=== PATIENT | male | born 1955 | race Caucasian/White ===

== ENCOUNTER 2017-12-14 14:59 | Inpatient (IN) ==
[2017-12-14] MEDS ORDERED: VANCOMYCIN INJ 1,000 MG in SODIUM CHLORIDE 0.9% 250 ML IV STA (15:36)
[2017-12-14] MEDS ORDERED: DIPH/TET/ACEL PERT BOOSTER VACCINE 0.5 ML VIAL IM ONE (15:36)
[2017-12-14] MEDS ORDERED: SODIUM CHLORIDE 0.9% 1,000 ML IV STA (15:36)
[2017-12-14 16:22] LABS: ABG Base Excess -1.4 MMOL/L (-2.5-2.5); ABG HCO3 23.3 MMOL/L (20-26); ABG Oxygen Saturation 98.4 % (95-100); ABG PH 7.525 (7.35-7.45); ABG TCO2 15.5 MMOL/L (23-27)
[2017-12-14] MEDS ORDERED: VANCOMYCIN 1,000 MG VIAL ONE (16:36)
[2017-12-14 16:42] LABS: Basophils # 0.1 10*3/uL (0.0-0.2); Basophils % 0.5 % (0.0-0.8); Hematocrit 44.1 VOL% (42.0-52.0); Hemoglobin 15.9 GM/DL (14.0-18.0); Immature Granulocytes % 1.2 %; Immature Granulocytes Absolute 0.25 #; Lymphocytes # 2.2 10*3/uL (1.4-4.0); Lymphocytes % 10.9 % (21.2-54.2); Mean Corpuscular HGB Conc 36.1 GM/DL (32-36); Mean Corpuscular Hemoglobin 33 PG (27-34); Mean Corpuscular Volume 92.1 FL (87-102); Mean Platelet Volume 13.4 FL (9.6-12.0); Monocytes # 0.5 10*3/uL (0.11-0.8); Monocytes % 2.3 % (1.7-12.7); Neutrophils # 17.2 10*3/uL (1.4-7.4); Neutrophils % 85.1 % (38.7-73.9); Platelet Count 135 T/CUMM (130-400); Red Blood Count 4.79 MC/CUMM (3.8-5.5); Red Cell Distribution Width 12.9 % (9.3-17.3); White Blood Count 20.2 T/CUMM (4-12)
[2017-12-14 16:43] LABS: Alanine Aminotransferase 51 U/L (16-61); Alkaline Phosphatase 55 U/L (45-117); Aspartate Amino Transferase 173 U/L (0-37); Blood Urea Nitrogen 61 MG/DL (7-18); Calcium 7.8 MG/DL (8.5-10.1); Glucose 118 MG/DL (74-106); Osmolality,Calculated 270.4 MOS/KG (273-304); Sodium 126 MMOL/L (136-145); Total Protein 7.4 G/DL (6.4-8.3)
[2017-12-14] MEDS ORDERED: THIAMINE INJ 100 MG, FOLIC ACID INJ 1 MG, MAGNESIUM SULF INJ 2 GM, MULTIVITAMIN INJ 10 ... IV ONE (16:50)
[2017-12-14 17:03] LABS: Band Neutrophils 39 % (0-10); Lymphocytes 10 % (20-55); Platelet Estimate Normal; Segmented Neutrophils 46 % (50-85)
[2017-12-14 17:04] LABS: Anisocytosis Slight; Burr Cells Few; Microcytosis Slight
[2017-12-14 17:07] LABS: Polychromasia Few; Tear Drop Cells Slight
[2017-12-14 17:08] LABS: Total Cells Counted 100
[2017-12-14] MEDS ORDERED: PIPERACILLIN/TAZOBACTAM 3,375 MG in SODIUM CHLORIDE 0.9% 100 ML IV STA (17:51)
[2017-12-14] MEDS ORDERED: SODIUM CHLORIDE 0.9% 1,000 ML IV ONE (18:02)
[2017-12-14] MEDS ORDERED: ONDANSETRON 4 MG/2 ML VIAL IV PRN (18:07)
[2017-12-14] MEDS ORDERED: diphenhydrAMINE CAP 25 MG CAPSULE PO PRN (18:07)
[2017-12-14] MEDS ORDERED: ACETAMINOPHEN 325 MG TABLET PO PRN (18:07)
[2017-12-14 18:28] LABS: Cholesterol 81 MG/DL (50-200); HDL Cholesterol < 10 MG/DL (40-60); Triglycerides 222 MG/DL (2-150); VLDL CHOLESTEROL 44.4 MG/DL
[2017-12-14 18:59] LABS: Apearance,Urine CLEAR (Clear); Bilirubin,Urine Negative (Negative); Blood, Urine Moderate mg/dL (Negative); Glucose,Urine (UA) Negative (Negative); Hyaline Casts,Urine 5 /LPF (0-3); Ketones,Urine Negative (Negative); Mucus,Urine Occasional /LPF (Occasional); Nitrite,Urine Negative (Negative); Protein,Urine Negative; RBC,Urine 1 /HPF (0-4); Squamous Epithelial Cell,Urine Occasional /HPF (0-10); Urine Color Amber (Yellow); Urine Specific Gravity 1.046 (1.001-1.035); WBC,Urine 1 /HPF (0-6)
[2017-12-14 19:07] LABS: Barbiturates Screen,Urine Negative (Negative); Benzodiazepines Screen,Urine Negative (Negative); Cannabinoid Screen,Urine Negative (Negative); Opiate Screen,Urine Negative (Negative); Phencyclidine Screen,Urine Negative (Negative)
[2017-12-14] MEDS: HEPARIN 5,000 UNIT/1 ML VIAL SUBCUT SCH (21:29)
[2017-12-14] MEDS: DOCUSATE SODIUM 100 MG CAPSULE PO SCH (21:36)
[2017-12-14] MEDS: THIAMINE INJ 100 MG, FOLIC ACID INJ 1 MG, MAGNESIUM SULF INJ 2 GM, MULTIVITAMIN INJ 10 ... IV SCH (23:56)
[2017-12-15 04:39] LABS: Basophils # 0.1 10*3/uL (0.0-0.2); Basophils % 0.6 % (0.0-0.8); Eosinophils % 0.1 % (0.00-10.9); Hematocrit 42.4 VOL% (42.0-52.0); Hemoglobin 14.9 GM/DL (14.0-18.0); Immature Granulocytes % 1.1 %; Immature Granulocytes Absolute 0.17 #; Lymphocytes # 1.7 10*3/uL (1.4-4.0); Lymphocytes % 11.5 % (21.2-54.2); Mean Corpuscular HGB Conc 35.1 GM/DL (32-36); Mean Corpuscular Hemoglobin 33 PG (27-34); Mean Corpuscular Volume 92.4 FL (87-102); Mean Platelet Volume 13.5 FL (9.6-12.0); Monocytes # 0.3 10*3/uL (0.11-0.8); Neutrophils # 12.6 10*3/uL (1.4-7.4); Neutrophils % 84.7 % (38.7-73.9); Platelet Count 119 T/CUMM (130-400); Red Blood Count 4.59 MC/CUMM (3.8-5.5); Red Cell Distribution Width 13.2 % (9.3-17.3); White Blood Count 14.8 T/CUMM (4-12)
[2017-12-15 05:14] LABS: Platelet Estimate Decreased; Polychromasia Few
[2017-12-15 05:17] LABS: Albumin 1.8 G/DL (3.4-5.0); Bilirubin,Total 2.8 MG/DL (0.2-1.0); Calcium 7.2 MG/DL (8.5-10.1); Osmolality,Calculated 277.5 MOS/KG (273-304); Potassium 3.1 MMOL/L (3.5-5.1); Total Protein 6.8 G/DL (6.4-8.3)
[2017-12-15] MEDS: chlordiazePOXIDE 25 MG CAPSULE PO SCH ×4 (06:22→18:04)
[2017-12-15] MEDS: MEROPENEM 1,000 MG in SODIUM CHLORIDE 0.9% 100 ML IV SCH ×3 (06:27→22:59)
[2017-12-15] MEDS: HEPARIN 5,000 UNIT/1 ML VIAL SUBCUT SCH ×3 (06:27→18:21)
[2017-12-15] MEDS: VANCOMYCIN INJ 1,000 MG in SODIUM CHLORIDE 0.9% 250 ML IV SCH ×2 (06:51→17:57)
[2017-12-15] MEDS: PIPERACILLIN/TAZOBACTAM 3,375 MG in SODIUM CHLORIDE 0.9% 100 ML IV SCH ×3 (08:41→23:06)
[2017-12-15] MEDS: MULTIVITAMIN (CENTRUM) TABLET PO SCH (08:44)
[2017-12-15] MEDS: FOLIC ACID 1 MG TABLET PO SCH (08:44)
[2017-12-15] MEDS: DOCUSATE SODIUM 100 MG CAPSULE PO SCH ×2 (08:44→20:49)
[2017-12-15] MEDS: SODIUM CHLORIDE 0.9% 1,000 ML IV SCH ×3 (10:28→23:06)
[2017-12-15] MEDS: THIAMINE INJ 100 MG, FOLIC ACID INJ 1 MG, MAGNESIUM SULF INJ 2 GM, MULTIVITAMIN INJ 10 ... IV SCH (20:49)
[2017-12-16] MEDS: chlordiazePOXIDE 25 MG CAPSULE PO SCH ×4 (00:05→18:33)
[2017-12-16] MEDS: SODIUM CHLORIDE 0.9% 1,000 ML IV SCH ×3 (02:31→18:14)
[2017-12-16] MEDS: HEPARIN 5,000 UNIT/1 ML VIAL SUBCUT SCH ×3 (02:49→18:15)
[2017-12-16 03:41] LABS: Basophils % 0.4 % (0.0-0.8); Eosinophils % 0.2 % (0.00-10.9); Hematocrit 39.1 VOL% (42.0-52.0); Hemoglobin 13.8 GM/DL (14.0-18.0); Immature Granulocytes % 1.5 %; Immature Granulocytes Absolute 0.15 #; Lymphocytes # 1.4 10*3/uL (1.4-4.0); Lymphocytes % 14.7 % (21.2-54.2); Mean Corpuscular HGB Conc 35.3 GM/DL (32-36); Mean Corpuscular Hemoglobin 33 PG (27-34); Mean Corpuscular Volume 94.4 FL (87-102); Monocytes # 0.2 10*3/uL (0.11-0.8); Monocytes % 1.7 % (1.7-12.7); Neutrophils % 81.5 % (38.7-73.9); Platelet Count 103 T/CUMM (130-400); Red Blood Count 4.14 MC/CUMM (3.8-5.5); Red Cell Distribution Width 13.4 % (9.3-17.3); White Blood Count 9.8 T/CUMM (4-12)
[2017-12-16 03:51] LABS: Albumin 1.4 G/DL (3.4-5.0); Bilirubin,Total 2.4 MG/DL (0.2-1.0); Calcium 6.9 MG/DL (8.5-10.1); Osmolality,Calculated 287.3 MOS/KG (273-304); Total Protein 6.1 G/DL (6.4-8.3)
[2017-12-16 04:13] LABS: Lymphocytes 10 % (20-55); Segmented Neutrophils 86 % (50-85); Total Cells Counted 100
[2017-12-16 04:14] LABS: Platelet Estimate Decreased
[2017-12-16] MEDS: MEROPENEM 1,000 MG in SODIUM CHLORIDE 0.9% 100 ML IV SCH (05:26)
[2017-12-16] MEDS: VANCOMYCIN INJ 1,000 MG in SODIUM CHLORIDE 0.9% 250 ML IV SCH ×2 (05:28→17:04)
[2017-12-16] MEDS: PIPERACILLIN/TAZOBACTAM 3,375 MG in SODIUM CHLORIDE 0.9% 100 ML IV SCH ×3 (08:44→23:24)
[2017-12-16] MEDS: MULTIVITAMIN (CENTRUM) TABLET PO SCH (10:27)
[2017-12-16] MEDS: FOLIC ACID 1 MG TABLET PO SCH (10:33)
[2017-12-16] MEDS: DOCUSATE SODIUM 100 MG CAPSULE PO SCH ×2 (10:33→21:59)
[2017-12-16] MEDS: POTASSIUM CHLORIDE RIDER 10 MEQ in PREMIX 1 EACH IV PRN ×5 (10:41→21:59)
[2017-12-16] MEDS ORDERED: METHYL SALICYLATE 60 ML BOTTLE TOP ONE (11:16)
[2017-12-16] MEDS ORDERED: BUPIVACAINE MPF 0.25% /EPI 30 ML VIAL ONE (11:48)
[2017-12-16] MEDS ORDERED: LIDOCAINE 1%/EPI INJ 20 ML VIAL ONE (11:48)
[2017-12-16] MEDS ORDERED: ONDANSETRON 4 MG/2 ML VIAL ONE (13:49)
[2017-12-16] MEDS ORDERED: ETOMIDATE 40 MG/20 ML VIAL IV ONE (13:49)
[2017-12-16] MEDS ORDERED: fentaNYL 100 MCG/2 ML VIAL ONE (13:49)
[2017-12-16] MEDS ORDERED: PHENYLEPHRINE 1 MG/10 ML SYRINGE IV ONE (13:49)
[2017-12-16] MEDS ORDERED: PROPOFOL 200 MG/20 ML VIAL IV ONE (13:49)
[2017-12-16] MEDS: MUPIROCIN 2% OINT 22 GM TUBE TOP SCH ×2 (16:52→21:59)
[2017-12-17] MEDS: HEPARIN 5,000 UNIT/1 ML VIAL SUBCUT SCH ×3 (03:47→18:02)
[2017-12-17] MEDS: chlordiazePOXIDE 25 MG CAPSULE PO SCH ×3 (03:47→21:13)
[2017-12-17] MEDS: POTASSIUM CHLORIDE RIDER 10 MEQ in PREMIX 1 EACH IV PRN ×2 (05:24→06:41)
[2017-12-17 06:06] LABS: Basophils % 0.3 % (0.0-0.8); Eosinophils % 0.2 % (0.00-10.9); Hematocrit 40.2 VOL% (42.0-52.0); Hemoglobin 13.6 GM/DL (14.0-18.0); Immature Granulocytes % 2.1 %; Immature Granulocytes Absolute 0.27 #; Lymphocytes # 1.4 10*3/uL (1.4-4.0); Lymphocytes % 10.6 % (21.2-54.2); Mean Corpuscular HGB Conc 33.8 GM/DL (32-36); Mean Corpuscular Hemoglobin 33 PG (27-34); Mean Corpuscular Volume 97.1 FL (87-102); Mean Platelet Volume 12.7 FL (9.6-12.0); Monocytes # 0.3 10*3/uL (0.11-0.8); Monocytes % 2.1 % (1.7-12.7); Neutrophils # 11.1 10*3/uL (1.4-7.4); Neutrophils % 84.7 % (38.7-73.9); Platelet Count 119 T/CUMM (130-400); Red Blood Count 4.14 MC/CUMM (3.8-5.5); Red Cell Distribution Width 14.1 % (9.3-17.3); White Blood Count 13.1 T/CUMM (4-12)
[2017-12-17 06:26] LABS: Band Neutrophils 8 % (0-10); Lymphocytes 12 % (20-55); Platelet Estimate Decreased; Segmented Neutrophils 77 % (50-85); Total Cells Counted 100
[2017-12-17 06:27] LABS: Hypochromasia 1+
[2017-12-17 06:30] LABS: Albumin 1.3 G/DL (3.4-5.0); Bilirubin,Total 2.1 MG/DL (0.2-1.0); Osmolality,Calculated 284.1 MOS/KG (273-304); Potassium 3.8 MMOL/L (3.5-5.1); Total Protein 6.1 G/DL (6.4-8.3)
[2017-12-17] MEDS: VANCOMYCIN INJ 1,000 MG in SODIUM CHLORIDE 0.9% 250 ML IV SCH ×2 (07:13→17:22)
[2017-12-17] MEDS: PIPERACILLIN/TAZOBACTAM 3,375 MG in SODIUM CHLORIDE 0.9% 100 ML IV SCH ×3 (08:54→23:13)
[2017-12-17] MEDS: MULTIVITAMIN (CENTRUM) TABLET PO SCH (08:56)
[2017-12-17] MEDS: DOCUSATE SODIUM 100 MG CAPSULE PO SCH ×2 (08:57→21:13)
[2017-12-17] MEDS: FOLIC ACID 1 MG TABLET PO SCH (08:57)
[2017-12-17] MEDS: MUPIROCIN 2% OINT 22 GM TUBE TOP SCH ×2 (11:32→21:13)
[2017-12-17] MEDS ORDERED: PROPOFOL 200 MG/20 ML VIAL IV ONE (13:55)
[2017-12-17] MEDS ORDERED: ONDANSETRON 4 MG/2 ML VIAL ONE (13:56)
[2017-12-17] MEDS ORDERED: SEVOFLURANE 1 UNIT/15 MINUTE INH ONE (13:56)
[2017-12-17] MEDS ORDERED: PHENYLEPHRINE 1 MG/10 ML SYRINGE IV ONE (13:56)
[2017-12-18] MEDS: HEPARIN 5,000 UNIT/1 ML VIAL SUBCUT SCH ×3 (03:38→17:48)
[2017-12-18 05:45] LABS: Basophils % 0.1 % (0.0-0.8); Eosinophils % 0.5 % (0.00-10.9); Hematocrit 37.3 VOL% (42.0-52.0); Immature Granulocytes % 1.7 %; Immature Granulocytes Absolute 0.14 #; Lymphocytes # 1.2 10*3/uL (1.4-4.0); Lymphocytes % 14.8 % (21.2-54.2); Mean Corpuscular HGB Conc 32.2 GM/DL (32-36); Mean Corpuscular Hemoglobin 33 PG (27-34); Mean Corpuscular Volume 101.1 FL (87-102); Monocytes # 0.3 10*3/uL (0.11-0.8); Monocytes % 3.3 % (1.7-12.7); Neutrophils # 6.5 10*3/uL (1.4-7.4); Neutrophils % 79.6 % (38.7-73.9); Platelet Count 112 T/CUMM (130-400); Red Blood Count 3.69 MC/CUMM (3.8-5.5); Red Cell Distribution Width 14.8 % (9.3-17.3); White Blood Count 8.2 T/CUMM (4-12)
[2017-12-18 06:13] LABS: Band Neutrophils 2 % (0-10); Hypochromasia 1+; Lymphocytes 14 % (20-55); Platelet Estimate Decreased; Segmented Neutrophils 77 % (50-85); Total Cells Counted 100
[2017-12-18 06:19] LABS: Calcium 6.9 MG/DL (8.5-10.1); Potassium 4.3 MMOL/L (3.5-5.1)
[2017-12-18] MEDS: VANCOMYCIN INJ 1,000 MG in SODIUM CHLORIDE 0.9% 250 ML IV SCH ×2 (06:30→18:28)
[2017-12-18] MEDS: PIPERACILLIN/TAZOBACTAM 3,375 MG in SODIUM CHLORIDE 0.9% 100 ML IV SCH (08:11)
[2017-12-18] MEDS: DOCUSATE SODIUM 100 MG CAPSULE PO SCH ×2 (08:12→21:00)
[2017-12-18] MEDS: chlordiazePOXIDE 25 MG CAPSULE PO SCH ×2 (08:12→21:00)
[2017-12-18] MEDS: MULTIVITAMIN (CENTRUM) TABLET PO SCH (08:12)
[2017-12-18] MEDS: MUPIROCIN 2% OINT 22 GM TUBE TOP SCH ×2 (08:20→21:03)
[2017-12-18] MEDS: FOLIC ACID 1 MG TABLET PO SCH (08:34)
[2017-12-18] MEDS: MORPHINE 4 MG/1 ML VIAL IV PRN (09:34)
[2017-12-18] MEDS: SODIUM HYPOCHLORITE 0.25% IRRIG 473 ML BOTTLE TOP SCH (10:00)
[2017-12-18] MEDS: ALBUTEROL 2.5 MG/3 ML NEB RESP TX SCH ×2 (14:28→19:28)
[2017-12-18] MEDS: AMPICILLIN/SULBACTAM 3,000 MG in SODIUM CHLORIDE 0.9% 100 ML IV SCH ×2 (15:02→21:02)
[2017-12-19] MEDS: ALBUTEROL 2.5 MG/3 ML NEB RESP TX SCH ×4 (02:03→19:51)
[2017-12-19] MEDS: AMPICILLIN/SULBACTAM 3,000 MG in SODIUM CHLORIDE 0.9% 100 ML IV SCH ×3 (03:21→14:14)
[2017-12-19] MEDS: HEPARIN 5,000 UNIT/1 ML VIAL SUBCUT SCH ×3 (05:20→20:36)
[2017-12-19] MEDS: VANCOMYCIN INJ 1,000 MG in SODIUM CHLORIDE 0.9% 250 ML IV SCH (06:43)
[2017-12-19 08:24] LABS: Basophils % 0.4 % (0.0-0.8); Eosinophils % 0.6 % (0.00-10.9); Hematocrit 37.3 VOL% (42.0-52.0); Hemoglobin 12.1 GM/DL (14.0-18.0); Immature Granulocytes % 0.9 %; Immature Granulocytes Absolute 0.06 #; Lymphocytes # 1.4 10*3/uL (1.4-4.0); Lymphocytes % 19.9 % (21.2-54.2); Mean Corpuscular HGB Conc 32.4 GM/DL (32-36); Mean Corpuscular Hemoglobin 33 PG (27-34); Mean Corpuscular Volume 101.4 FL (87-102); Mean Platelet Volume 12.5 FL (9.6-12.0); Monocytes # 0.3 10*3/uL (0.11-0.8); Neutrophils # 5.1 10*3/uL (1.4-7.4); Neutrophils % 74.2 % (38.7-73.9); Platelet Count 140 T/CUMM (130-400); Red Blood Count 3.68 MC/CUMM (3.8-5.5); Red Cell Distribution Width 14.9 % (9.3-17.3); White Blood Count 6.8 T/CUMM (4-12)
[2017-12-19 08:56] LABS: Calcium 7.1 MG/DL (8.5-10.1); Osmolality,Calculated 285.8 MOS/KG (273-304)
[2017-12-19] MEDS: MULTIVITAMIN (CENTRUM) TABLET PO SCH (09:10)
[2017-12-19] MEDS: MUPIROCIN 2% OINT 22 GM TUBE TOP SCH ×2 (09:10→20:35)
[2017-12-19] MEDS: DOCUSATE SODIUM 100 MG CAPSULE PO SCH ×2 (09:11→20:35)
[2017-12-19] MEDS: FOLIC ACID 1 MG TABLET PO SCH (09:11)
[2017-12-19] MEDS: chlordiazePOXIDE 25 MG CAPSULE PO SCH ×2 (09:17→20:36)
[2017-12-19] MEDS: MORPHINE 4 MG/1 ML VIAL IV PRN (10:05)
[2017-12-19] MEDS: SODIUM HYPOCHLORITE 0.25% IRRIG 473 ML BOTTLE TOP SCH (10:05)
[2017-12-19] MEDS ORDERED: MIDAZOLAM 2 MG/2 ML VIAL ONE (15:00)
[2017-12-19] MEDS ORDERED: SEVOFLURANE 1 UNIT/15 MINUTE INH ONE (15:00)
[2017-12-19] MEDS ORDERED: DEXAMETHASONE 10 MG/1 ML VIAL ONE (15:00)
[2017-12-19] MEDS ORDERED: ePHEDrine 50 MG/ML AMP ONE (15:00)
[2017-12-19] MEDS ORDERED: PROPOFOL 200 MG/20 ML VIAL IV ONE (15:00)
[2017-12-19] MEDS ORDERED: PHENYLEPHRINE 1 MG/10 ML SYRINGE IV ONE (15:01)
[2017-12-19] MEDS ORDERED: ETOMIDATE 40 MG/20 ML VIAL IV ONE (15:01)
[2017-12-19] MEDS ORDERED: ONDANSETRON 4 MG/2 ML VIAL ONE (15:01)
[2017-12-19] MEDS ORDERED: KETOROLAC 30 MG/1 ML VIAL ONE (15:01)
[2017-12-19] MEDS: SODIUM CHLORIDE 0.9% 1,000 ML IV SCH ×2 (16:57→16:58)
[2017-12-19] MEDS: CLINDAMYCIN INJ 600 MG in PREMIX 1 EACH IV SCH (17:37)
[2017-12-19] MEDS: PENICILLIN G POTASSIUM INJ 2,000,000 UNIT in SODIUM CHLORIDE 0.9% 100 ML IV SCH ×2 (18:34→22:19)
[2017-12-20] MEDS: ALBUTEROL 2.5 MG/3 ML NEB RESP TX SCH ×4 (00:08→19:41)
[2017-12-20] MEDS: CLINDAMYCIN INJ 600 MG in PREMIX 1 EACH IV SCH ×3 (02:15→16:50)
[2017-12-20] MEDS: PENICILLIN G POTASSIUM INJ 2,000,000 UNIT in SODIUM CHLORIDE 0.9% 100 ML IV SCH ×5 (05:19→21:53)
[2017-12-20] MEDS: HEPARIN 5,000 UNIT/1 ML VIAL SUBCUT SCH ×3 (06:29→22:09)
[2017-12-20 06:55] LABS: Basophils % 0.2 % (0.0-0.8); Hematocrit 34.5 VOL% (42.0-52.0); Hemoglobin 11.3 GM/DL (14.0-18.0); Immature Granulocytes % 0.7 %; Immature Granulocytes Absolute 0.04 #; Mean Corpuscular HGB Conc 32.8 GM/DL (32-36); Mean Corpuscular Hemoglobin 33 PG (27-34); Mean Corpuscular Volume 102.1 FL (87-102); Monocytes # 0.2 10*3/uL (0.11-0.8); Monocytes % 3.6 % (1.7-12.7); Neutrophils # 4.5 10*3/uL (1.4-7.4); Neutrophils % 77.5 % (38.7-73.9); Platelet Count 135 T/CUMM (130-400); Red Blood Count 3.38 MC/CUMM (3.8-5.5); White Blood Count 5.8 T/CUMM (4-12)
[2017-12-20 07:20] LABS: Calcium 7.7 MG/DL (8.5-10.1); Osmolality,Calculated 281.3 MOS/KG (273-304); Potassium 4.6 MMOL/L (3.5-5.1)
[2017-12-20] MEDS: MUPIROCIN 2% OINT 22 GM TUBE TOP SCH ×2 (11:53→22:10)
[2017-12-20] MEDS: MULTIVITAMIN (CENTRUM) TABLET PO SCH (11:53)
[2017-12-20] MEDS: DOCUSATE SODIUM 100 MG CAPSULE PO SCH ×2 (11:56→21:50)
[2017-12-20] MEDS: FOLIC ACID 1 MG TABLET PO SCH (11:56)
[2017-12-20] MEDS: chlordiazePOXIDE 25 MG CAPSULE PO SCH (11:56)
[2017-12-20] MEDS: SODIUM HYPOCHLORITE 0.25% IRRIG 473 ML BOTTLE TOP SCH (11:57)
[2017-12-20] MEDS: LACTOBACILLUS ACIDOPHILUS/BULGARICUS CAPLET PO SCH (22:10)
[2017-12-20] MEDS: chlordiazePOXIDE 10 MG CAPSULE PO SCH (22:11)
[2017-12-21] MEDS: ALBUTEROL 2.5 MG/3 ML NEB RESP TX SCH ×3 (00:28→15:36)
[2017-12-21] MEDS: CLINDAMYCIN INJ 600 MG in PREMIX 1 EACH IV SCH ×3 (01:57→16:49)
[2017-12-21] MEDS: PENICILLIN G POTASSIUM INJ 2,000,000 UNIT in SODIUM CHLORIDE 0.9% 100 ML IV SCH ×6 (03:23→21:40)
[2017-12-21] MEDS: HEPARIN 5,000 UNIT/1 ML VIAL SUBCUT SCH ×2 (04:39→14:12)
[2017-12-21 05:47] LABS: Basophils % 0.2 % (0.0-0.8); Eosinophils % 0.6 % (0.00-10.9); Hematocrit 34.9 VOL% (42.0-52.0); Hemoglobin 11.3 GM/DL (14.0-18.0); Immature Granulocytes % 0.6 %; Immature Granulocytes Absolute 0.04 #; Lymphocytes # 1.6 10*3/uL (1.4-4.0); Lymphocytes % 24.2 % (21.2-54.2); Mean Corpuscular HGB Conc 32.4 GM/DL (32-36); Mean Corpuscular Hemoglobin 33 PG (27-34); Mean Corpuscular Volume 101.7 FL (87-102); Monocytes # 0.4 10*3/uL (0.11-0.8); Monocytes % 5.7 % (1.7-12.7); Neutrophils # 4.5 10*3/uL (1.4-7.4); Neutrophils % 68.7 % (38.7-73.9); Platelet Count 152 T/CUMM (130-400); Red Blood Count 3.43 MC/CUMM (3.8-5.5); Red Cell Distribution Width 14.7 % (9.3-17.3); White Blood Count 6.5 T/CUMM (4-12)
[2017-12-21 06:07] LABS: Albumin 1.6 G/DL (3.4-5.0); Bilirubin,Total 1.1 MG/DL (0.2-1.0); Calcium 7.4 MG/DL (8.5-10.1); Osmolality,Calculated 282.1 MOS/KG (273-304); Potassium 4.1 MMOL/L (3.5-5.1); Total Protein 6.5 G/DL (6.4-8.3)
[2017-12-21 06:31] LABS: Folate 6.5 NG/ML (5.4-24.0)
[2017-12-21] MEDS ORDERED: MAGNESIUM SULF RIDER 2 GM in PREMIX 1 EACH IV ONE (08:42)
[2017-12-21] MEDS: LACTOBACILLUS ACIDOPHILUS/BULGARICUS CAPLET PO SCH ×2 (10:48→11:06)
[2017-12-21] MEDS: MULTIVITAMIN (CENTRUM) TABLET PO SCH ×2 (10:48→11:07)
[2017-12-21] MEDS: chlordiazePOXIDE 10 MG CAPSULE PO SCH ×2 (10:48→11:09)
[2017-12-21] MEDS: DOCUSATE SODIUM 100 MG CAPSULE PO SCH ×2 (10:49→11:08)
[2017-12-21] MEDS: FOLIC ACID 1 MG TABLET PO SCH ×2 (10:49→11:08)
[2017-12-21] MEDS: MUPIROCIN 2% OINT 22 GM TUBE TOP SCH (10:50)
[2017-12-21] MEDS: SODIUM HYPOCHLORITE 0.25% IRRIG 473 ML BOTTLE TOP SCH (10:50)
[2017-12-21] MEDS ORDERED: FUROSEMIDE 40 MG/4 ML VIAL IV ONE (13:28)
[2017-12-21] MEDS: ALBUTEROL/IPRATROPIUM 3 ML NEB RESP TX SCH ×2 (13:40→19:50)
[2017-12-21] MEDS: DORNASE ALFA 2.5 MG/2.5 ML VIAL RESP TX SCH ×2 (13:45→19:50)
[2017-12-21] MEDS ORDERED: ALBUTEROL 2.5 MG/3 ML NEB RESP TX PRN (14:32)
[2017-12-21] MEDS ORDERED: MORPHINE 4 MG/1 ML VIAL IV PRN (14:36)
[2017-12-22] MEDS: ALBUTEROL/IPRATROPIUM 3 ML NEB RESP TX SCH ×4 (00:01→19:03)
[2017-12-22] MEDS: FOLIC ACID 1 MG TABLET PO SCH ×3 (01:24→21:51)
[2017-12-22] MEDS: LACTOBACILLUS ACIDOPHILUS/BULGARICUS CAPLET PO SCH ×3 (01:24→21:51)
[2017-12-22] MEDS: HEPARIN 5,000 UNIT/1 ML VIAL SUBCUT SCH ×4 (01:24→21:50)
[2017-12-22] MEDS: MUPIROCIN 2% OINT 22 GM TUBE TOP SCH ×3 (01:24→21:52)
[2017-12-22] MEDS: DOCUSATE SODIUM 100 MG CAPSULE PO SCH ×3 (01:24→21:51)
[2017-12-22] MEDS: PENICILLIN G POTASSIUM INJ 2,000,000 UNIT in SODIUM CHLORIDE 0.9% 100 ML IV SCH ×6 (01:40→22:12)
[2017-12-22] MEDS: CLINDAMYCIN INJ 600 MG in PREMIX 1 EACH IV SCH ×3 (02:30→17:08)
[2017-12-22] MEDS: DORNASE ALFA 2.5 MG/2.5 ML VIAL RESP TX SCH ×2 (07:05→19:03)
[2017-12-22] MEDS: MULTIVITAMIN (CENTRUM) TABLET PO SCH (09:46)
[2017-12-22] MEDS: SODIUM HYPOCHLORITE 0.25% IRRIG 473 ML BOTTLE TOP SCH (12:00)
[2017-12-22] MEDS ORDERED: FUROSEMIDE 40 MG/4 ML VIAL IV ONE (12:03)
[2017-12-23] MEDS: ALBUTEROL/IPRATROPIUM 3 ML NEB RESP TX SCH ×4 (00:16→18:57)
[2017-12-23] MEDS: CLINDAMYCIN INJ 600 MG in PREMIX 1 EACH IV SCH ×3 (00:54→16:00)
[2017-12-23] MEDS: PENICILLIN G POTASSIUM INJ 2,000,000 UNIT in SODIUM CHLORIDE 0.9% 100 ML IV SCH ×6 (01:20→20:54)
[2017-12-23] MEDS: HEPARIN 5,000 UNIT/1 ML VIAL SUBCUT SCH ×3 (05:10→20:47)
[2017-12-23] MEDS: DORNASE ALFA 2.5 MG/2.5 ML VIAL RESP TX SCH ×2 (07:20→19:02)
[2017-12-23] MEDS: LACTOBACILLUS ACIDOPHILUS/BULGARICUS CAPLET PO SCH ×2 (08:46→20:47)
[2017-12-23] MEDS: MULTIVITAMIN (CENTRUM) TABLET PO SCH (08:46)
[2017-12-23] MEDS: FOLIC ACID 1 MG TABLET PO SCH ×2 (08:47→20:47)
[2017-12-23] MEDS: SODIUM HYPOCHLORITE 0.25% IRRIG 473 ML BOTTLE TOP SCH (08:47)
[2017-12-23] MEDS: MUPIROCIN 2% OINT 22 GM TUBE TOP SCH ×2 (08:51→20:56)
[2017-12-23] MEDS: DOCUSATE SODIUM 100 MG CAPSULE PO SCH ×2 (08:51→20:47)
[2017-12-24] MEDS: CLINDAMYCIN INJ 600 MG in PREMIX 1 EACH IV SCH ×3 (00:24→16:50)
[2017-12-24] MEDS: ALBUTEROL/IPRATROPIUM 3 ML NEB RESP TX SCH ×4 (00:37→20:10)
[2017-12-24] MEDS: PENICILLIN G POTASSIUM INJ 2,000,000 UNIT in SODIUM CHLORIDE 0.9% 100 ML IV SCH ×6 (00:57→21:33)
[2017-12-24] MEDS: HEPARIN 5,000 UNIT/1 ML VIAL SUBCUT SCH ×3 (05:09→21:20)
[2017-12-24 05:45] LABS: Basophils % 0.6 % (0.0-0.8); Eosinophils % 0.3 % (0.00-10.9); Hematocrit 35.5 VOL% (42.0-52.0); Hemoglobin 11.6 GM/DL (14.0-18.0); Immature Granulocytes Absolute 0.14 #; Lymphocytes # 2.2 10*3/uL (1.4-4.0); Lymphocytes % 30.5 % (21.2-54.2); Mean Corpuscular HGB Conc 32.7 GM/DL (32-36); Mean Corpuscular Hemoglobin 33 PG (27-34); Mean Corpuscular Volume 99.7 FL (87-102); Mean Platelet Volume 12.2 FL (9.6-12.0); Monocytes # 0.4 10*3/uL (0.11-0.8); Monocytes % 5.3 % (1.7-12.7); Neutrophils # 4.4 10*3/uL (1.4-7.4); Neutrophils % 61.3 % (38.7-73.9); Platelet Count 171 T/CUMM (130-400); Red Blood Count 3.56 MC/CUMM (3.8-5.5); Red Cell Distribution Width 14.1 % (9.3-17.3); White Blood Count 7.1 T/CUMM (4-12)
[2017-12-24 06:17] LABS: Osmolality,Calculated 272.8 MOS/KG (273-304); Potassium 3.8 MMOL/L (3.5-5.1)
[2017-12-24] MEDS: DORNASE ALFA 2.5 MG/2.5 ML VIAL RESP TX SCH ×2 (06:55→20:10)
[2017-12-24] MEDS: LACTOBACILLUS ACIDOPHILUS/BULGARICUS CAPLET PO SCH ×2 (09:11→21:21)
[2017-12-24] MEDS: MULTIVITAMIN (CENTRUM) TABLET PO SCH (09:11)
[2017-12-24] MEDS: FOLIC ACID 1 MG TABLET PO SCH ×2 (09:11→21:21)
[2017-12-24] MEDS: DOCUSATE SODIUM 100 MG CAPSULE PO SCH ×2 (09:11→21:21)
[2017-12-24] MEDS: MUPIROCIN 2% OINT 22 GM TUBE TOP SCH ×2 (11:30→21:21)
[2017-12-24] MEDS: SODIUM HYPOCHLORITE 0.25% IRRIG 473 ML BOTTLE TOP SCH (11:30)
[2017-12-25] MEDS: ALBUTEROL/IPRATROPIUM 3 ML NEB RESP TX SCH ×4 (01:00→19:46)
[2017-12-25] MEDS: CLINDAMYCIN INJ 600 MG in PREMIX 1 EACH IV SCH ×3 (01:31→17:27)
[2017-12-25] MEDS: PENICILLIN G POTASSIUM INJ 2,000,000 UNIT in SODIUM CHLORIDE 0.9% 100 ML IV SCH ×6 (03:27→21:08)
[2017-12-25] MEDS: HEPARIN 5,000 UNIT/1 ML VIAL SUBCUT SCH ×3 (05:12→21:09)
[2017-12-25] MEDS: DORNASE ALFA 2.5 MG/2.5 ML VIAL RESP TX SCH ×2 (07:39→19:46)
[2017-12-25] MEDS: LACTOBACILLUS ACIDOPHILUS/BULGARICUS CAPLET PO SCH ×2 (09:19→21:09)
[2017-12-25] MEDS: MULTIVITAMIN (CENTRUM) TABLET PO SCH (09:19)
[2017-12-25] MEDS: DOCUSATE SODIUM 100 MG CAPSULE PO SCH ×2 (09:19→21:09)
[2017-12-25] MEDS: FOLIC ACID 1 MG TABLET PO SCH ×2 (09:19→21:09)
[2017-12-25] MEDS: MUPIROCIN 2% OINT 22 GM TUBE TOP SCH ×2 (09:20→21:10)
[2017-12-25] MEDS: SODIUM HYPOCHLORITE 0.25% IRRIG 473 ML BOTTLE TOP SCH (09:20)
[2017-12-26] MEDS: ALBUTEROL/IPRATROPIUM 3 ML NEB RESP TX SCH ×4 (01:14→19:06)
[2017-12-26] MEDS: PENICILLIN G POTASSIUM INJ 2,000,000 UNIT in SODIUM CHLORIDE 0.9% 100 ML IV SCH ×6 (01:18→23:20)
[2017-12-26] MEDS: CLINDAMYCIN INJ 600 MG in PREMIX 1 EACH IV SCH ×3 (02:05→17:18)
[2017-12-26] MEDS: HEPARIN 5,000 UNIT/1 ML VIAL SUBCUT SCH ×3 (05:49→21:10)
[2017-12-26 06:20] LABS: Calcium 8.3 MG/DL (8.5-10.1); Osmolality,Calculated 269.1 MOS/KG (273-304)
[2017-12-26] MEDS: DORNASE ALFA 2.5 MG/2.5 ML VIAL RESP TX SCH ×2 (07:37→19:06)
[2017-12-26] MEDS: LACTOBACILLUS ACIDOPHILUS/BULGARICUS CAPLET PO SCH ×2 (09:33→21:08)
[2017-12-26] MEDS: MUPIROCIN 2% OINT 22 GM TUBE TOP SCH ×2 (09:34→21:10)
[2017-12-26] MEDS: SODIUM HYPOCHLORITE 0.25% IRRIG 473 ML BOTTLE TOP SCH (09:34)
[2017-12-26] MEDS: DOCUSATE SODIUM 100 MG CAPSULE PO SCH ×2 (09:34→21:08)
[2017-12-26] MEDS: MULTIVITAMIN (CENTRUM) TABLET PO SCH (09:34)
[2017-12-26] MEDS: FOLIC ACID 1 MG TABLET PO SCH ×2 (09:34→21:08)
[2017-12-27] MEDS: ALBUTEROL/IPRATROPIUM 3 ML NEB RESP TX SCH ×4 (01:05→19:39)
[2017-12-27] MEDS: CLINDAMYCIN INJ 600 MG in PREMIX 1 EACH IV SCH ×3 (01:48→17:27)
[2017-12-27] MEDS: PENICILLIN G POTASSIUM INJ 2,000,000 UNIT in SODIUM CHLORIDE 0.9% 100 ML IV SCH ×6 (03:09→23:10)
[2017-12-27] MEDS: HEPARIN 5,000 UNIT/1 ML VIAL SUBCUT SCH ×3 (05:40→21:02)
[2017-12-27] MEDS: DORNASE ALFA 2.5 MG/2.5 ML VIAL RESP TX SCH ×2 (07:09→19:39)
[2017-12-27] MEDS: LACTOBACILLUS ACIDOPHILUS/BULGARICUS CAPLET PO SCH ×2 (09:10→21:01)
[2017-12-27] MEDS: MULTIVITAMIN (CENTRUM) TABLET PO SCH (09:10)
[2017-12-27] MEDS: MUPIROCIN 2% OINT 22 GM TUBE TOP SCH ×2 (09:10→22:58)
[2017-12-27] MEDS: DOCUSATE SODIUM 100 MG CAPSULE PO SCH ×2 (09:10→21:02)
[2017-12-27] MEDS: FOLIC ACID 1 MG TABLET PO SCH ×2 (09:11→21:02)
[2017-12-27] MEDS: SODIUM HYPOCHLORITE 0.25% IRRIG 473 ML BOTTLE TOP SCH (18:20)
[2017-12-28] MEDS: CLINDAMYCIN INJ 600 MG in PREMIX 1 EACH IV SCH ×2 (01:22→09:21)
[2017-12-28] MEDS: ALBUTEROL/IPRATROPIUM 3 ML NEB RESP TX SCH ×2 (01:46→07:35)
[2017-12-28] MEDS: PENICILLIN G POTASSIUM INJ 2,000,000 UNIT in SODIUM CHLORIDE 0.9% 100 ML IV SCH ×3 (03:20→11:00)
[2017-12-28] MEDS: HEPARIN 5,000 UNIT/1 ML VIAL SUBCUT SCH (05:19)
[2017-12-28 05:34] LABS: Basophils # 0.1 10*3/uL (0.0-0.2); Basophils % 0.9 % (0.0-0.8); Eosinophils # 0.1 10*3/uL (0.0-0.87); Eosinophils % 0.8 % (0.00-10.9); Hemoglobin 13.5 GM/DL (14.0-18.0); Immature Granulocytes % 1.9 %; Immature Granulocytes Absolute 0.15 #; Lymphocytes # 2.4 10*3/uL (1.4-4.0); Lymphocytes % 30.8 % (21.2-54.2); Mean Corpuscular HGB Conc 32.9 GM/DL (32-36); Mean Corpuscular Hemoglobin 33 PG (27-34); Mean Corpuscular Volume 99.3 FL (87-102); Mean Platelet Volume 12.6 FL (9.6-12.0); Monocytes # 0.7 10*3/uL (0.11-0.8); Monocytes % 8.8 % (1.7-12.7); NRBC # 0.06 10*3/uL; Neutrophils # 4.5 10*3/uL (1.4-7.4); Neutrophils % 56.8 % (38.7-73.9); Platelet Count 135 T/CUMM (130-400); Red Blood Count 4.13 MC/CUMM (3.8-5.5); Red Cell Distribution Width 14.6 % (9.3-17.3); White Blood Count 7.9 T/CUMM (4-12)
[2017-12-28 06:21] LABS: Hypochromasia 1+; Platelet Estimate Normal
[2017-12-28] MEDS: DORNASE ALFA 2.5 MG/2.5 ML VIAL RESP TX SCH (07:45)
[2017-12-28 08:53] VITALS: BP 115/74
[2017-12-28] MEDS: LACTOBACILLUS ACIDOPHILUS/BULGARICUS CAPLET PO SCH (09:25)
[2017-12-28] MEDS: MULTIVITAMIN (CENTRUM) TABLET PO SCH (09:25)
[2017-12-28] MEDS: DOCUSATE SODIUM 100 MG CAPSULE PO SCH (09:25)
[2017-12-28] MEDS: FOLIC ACID 1 MG TABLET PO SCH (09:26)
[2017-12-28] MEDS: SODIUM HYPOCHLORITE 0.25% IRRIG 473 ML BOTTLE TOP SCH (10:45)
[2017-12-28] MEDS: MUPIROCIN 2% OINT 22 GM TUBE TOP SCH (11:25)
== END 2017-12-28 12:00 | disposition home health service (06) | DRG 853 ==
LOC: N.ED 14:59 → N.EDINP 18:06 → SUATTDRO 18:06 → N.3E 18:26
PROVIDERS: ATTEND Internal Medicine

== ENCOUNTER 2020-03-03 18:04 | Inpatient (IN) ==
[2020-03-03] MEDS ORDERED: SODIUM CHLORIDE 0.9% 1,000 ML IV STA (19:29)
[2020-03-03 20:01] LABS: Basophils # 0.1 10*3/uL (0.0-0.2); Basophils % 0.6 % (0.0-0.8); Eosinophils % 0.1 % (0.00-10.9); Hematocrit 59.4 VOL% (42.0-52.0); Hemoglobin 19.4 GM/DL (14.0-18.0); Immature Granulocytes % 1.7 %; Lymphocytes # 1.4 10*3/uL (1.4-4.0); Lymphocytes % 8.1 % (21.2-54.2); Mean Corpuscular HGB Conc 32.7 GM/DL (32-36); Mean Corpuscular Volume 103.5 FL (87-102); Mean Platelet Volume 10.8 FL (9.6-12.0); Neutrophils % 84.5 % (38.7-73.9); Platelet Count 197 T/CUMM (130-400); Red Blood Count 5.74 MC/CUMM (3.8-5.5); Red Cell Distribution Width 14.6 % (9.3-17.3); White Blood Count 17.9 T/CUMM (4-12)
[2020-03-03 20:12] LABS: PT Patient Result 11.2 SECS (9.8-11.9)
[2020-03-03 20:36] LABS: Alanine Aminotransferase 51 U/L (16-61); Albumin 3.8 G/DL (3.4-5.0); Alkaline Phosphatase 114 U/L (45-117); Aspartate Amino Transferase 81 U/L (0-37); Blood Urea Nitrogen 25 MG/DL (7-18); CKMB % 1.3 %; Calcium 8.4 MG/DL (8.5-10.1); Estimated Glom Filtration Rate 39 ML/MIN; Glucose 113 MG/DL (74-106); Osmolality,Calculated 292.7 MOS/KG (273-304); Total Protein 8.1 G/DL (6.4-8.3); Troponin I < 0.015 NG/ML (0.00-0.045)
[2020-03-03] MEDS ORDERED: THIAMINE INJ 100 MG, FOLIC ACID INJ 1 MG, MAGNESIUM SULF INJ 2 GM, MULTIVITAMIN INJ 10 ... IV ONE (21:17)
[2020-03-03] MEDS ORDERED: SODIUM BICARBONATE 50 MEQ/50 ML VIAL IV STA ×2 (21:18→21:41)
[2020-03-03 21:38] LABS: ABG Base Excess -27.1 MMOL/L (-2.5-2.5); ABG HCO3 7.7 MMOL/L (20-26); ABG Oxygen Saturation 95.9 % (95-100); ABG PCO2 22.8 MM HG (35-48); ABG TCO2 5.2 MMOL/L (23-27); Allen Test Positive
[2020-03-03 21:41] LABS: ABG PH 7.005 (7.35-7.45)
[2020-03-03 22:12] LABS: Bacteria,Urine Occasional /HPF (Few); Bilirubin,Urine Negative (Negative); Blood, Urine Large mg/dL (Negative); Glucose,Urine (UA) Negative (Negative); Ketones,Urine 5 mg/dL (Negative); Mucus,Urine Occasional /LPF (Occasional); Nitrite,Urine Negative (Negative); Protein,Urine 100 MG/DL; RBC,Urine 3 /HPF (0-4); Squamous Epithelial Cell,Urine Occasional /HPF (0-10); Urine Appearance Slightly Hazy (Clear); Urine Color Yellow (Yellow); Urine Specific Gravity 1.013 (1.001-1.035); Urine Urobilinogen < 2.0 EU/DL (0.2-1.0); WBC,Urine 3 /HPF (0-6)
[2020-03-03 22:17] LABS: Barbiturates Screen,Urine Negative (Negative); Benzodiazepines Screen,Urine Negative (Negative); Cannabinoid Screen,Urine Negative (Negative); Opiate Screen,Urine Negative (Negative); Phencyclidine Screen,Urine Negative (Negative)
[2020-03-03] MEDS ORDERED: DEXTROSE 50% 25 GM/50 ML VIAL IV PRN (23:14)
[2020-03-03] MEDS ORDERED: ACETAMINOPHEN 325 MG TABLET PO PRN (23:14)
[2020-03-03] MEDS ORDERED: GLUCAGON 1 MG VIAL IM PRN (23:14)
[2020-03-03] MEDS ORDERED: hydrALAZINE 20 MG/1 ML VIAL IV PRN (23:14)
[2020-03-03] MEDS ORDERED: THIAMINE INJ 100 MG, FOLIC ACID INJ 1 MG, MULTIVITAMIN INJ 10 ML in SODIUM CHLORIDE 0.4... IV ONE (23:25)
[2020-03-04] MEDS: ALBUTEROL/IPRATROPIUM 3 ML NEB RESP TX SCH ×4 (00:50→19:58)
[2020-03-04 05:24] LABS: ABG Base Excess -8.5 MMOL/L (-2.5-2.5); ABG HCO3 13.3 MMOL/L (20-26); ABG Oxygen Saturation 96.1 % (95-100); ABG PCO2 21.1 MM HG (35-48); ABG PH 7.416 (7.35-7.45); ABG PO2 81.4 MM HG (80-95); ABG TCO2 13.9 MMOL/L (23-27); Allen Test Positive; Pt O2 Delivery Device Room Air
[2020-03-04 05:28] LABS: Basophils % 0.1 % (0.0-0.8); Hematocrit 47.3 VOL% (42.0-52.0); Immature Granulocytes % 0.5 %; Immature Granulocytes Absolute 0.08 #; Lymphocytes # 1.2 10*3/uL (1.4-4.0); Lymphocytes % 7.4 % (21.2-54.2); Mean Corpuscular HGB Conc 35.1 GM/DL (32-36); Mean Corpuscular Volume 95.6 FL (87-102); Mean Platelet Volume 11.3 FL (9.6-12.0); Monocytes % 5.1 % (1.7-12.7); Neutrophils % 86.9 % (38.7-73.9); Red Blood Count 4.95 MC/CUMM (3.8-5.5); Red Cell Distribution Width 14.3 % (9.3-17.3); White Blood Count 15.7 T/CUMM (4-12)
[2020-03-04 05:32] LABS: Hemoglobin 16.6 GM/DL (14.0-18.0); Platelet Count 133 T/CUMM (130-400)
[2020-03-04 05:51] LABS: Calcium 6.9 MG/DL (8.5-10.1); Osmolality,Calculated 277.1 MOS/KG (273-304); Risk Ratio 2.73; Thyroid Stimulating Hormone 0.575 uIU/ml (0.358-3.74); VLDL CHOLESTEROL 17.2 MG/DL
[2020-03-04 07:03] LABS: Folate > 24.0 NG/ML (5.4-24.0); Vitamin B12 1336 PG/ML (211-911)
[2020-03-04] MEDS: ENOXAPARIN 40 MG/0.4 ML SYRINGE SUBCUT SCH (11:00)
[2020-03-04] MEDS: MULTIVITAMIN (CENTRUM) TABLET PO SCH (11:05)
[2020-03-04] MEDS: PANTOPRAZOLE 40 MG TABLET PO SCH (11:05)
[2020-03-04] MEDS: FOLIC ACID 1 MG TABLET PO SCH (11:05)
[2020-03-04] MEDS: THIAMINE 100 MG TABLET PO SCH (11:05)
[2020-03-04] MEDS: NICOTINE 21 MG/24 HR PATCH TRANSDERM SCH (11:07)
[2020-03-04] MEDS: LORazepam 2 MG/1 ML VIAL IV PRN (11:15)
[2020-03-04] MEDS ORDERED: INFLUENZA VIRUS VACCINE 0.5 ML SYRINGE IM ONE (20:06)
[2020-03-05] MEDS: ALBUTEROL/IPRATROPIUM 3 ML NEB RESP TX SCH ×4 (01:58→18:40)
[2020-03-05 04:37] LABS: Basophils % 0.3 % (0.0-0.8); Eosinophils % 0.3 % (0.00-10.9); Hematocrit 50.7 VOL% (42.0-52.0); Hemoglobin 18.4 GM/DL (14.0-18.0); Immature Granulocytes % 0.3 %; Immature Granulocytes Absolute 0.01 #; Lymphocytes % 29.1 % (21.2-54.2); Mean Corpuscular HGB Conc 36.3 GM/DL (32-36); Mean Corpuscular Volume 91.7 FL (87-102); Mean Platelet Volume 11.9 FL (9.6-12.0); Monocytes % 9.7 % (1.7-12.7); Neutrophils % 60.3 % (38.7-73.9); Platelet Count 103 T/CUMM (130-400); Red Blood Count 5.53 MC/CUMM (3.8-5.5); White Blood Count 3.5 T/CUMM (4-12)
[2020-03-05 04:54] LABS: Band Neutrophils 20 % (0-10); Lymphocytes 31 % (20-55); Nucleated Red Blood Cells 1 (0-5); Segmented Neutrophils 47 % (50-85); Total Cells Counted 100
[2020-03-05 04:55] LABS: Atypical Lymphocytes Few; Platelet Estimate Decreased
[2020-03-05 05:04] LABS: Albumin 3.3 G/DL (3.4-5.0); Bilirubin,Total 2.1 MG/DL (0.2-1.0); Calcium 7.8 MG/DL (8.5-10.1); Osmolality,Calculated 275.2 MOS/KG (273-304); Total Protein 7.3 G/DL (6.4-8.3)
[2020-03-05] MEDS: ONDANSETRON 4 MG/2 ML VIAL IV PRN ×2 (08:46→19:13)
[2020-03-05] MEDS: MULTIVITAMIN (CENTRUM) TABLET PO SCH (09:38)
[2020-03-05] MEDS: FOLIC ACID 1 MG TABLET PO SCH (09:38)
[2020-03-05] MEDS: PANTOPRAZOLE 40 MG TABLET PO SCH (09:39)
[2020-03-05] MEDS: THIAMINE 100 MG TABLET PO SCH (09:39)
[2020-03-05] MEDS: NICOTINE 21 MG/24 HR PATCH TRANSDERM SCH (09:39)
[2020-03-05] MEDS: ENOXAPARIN 40 MG/0.4 ML SYRINGE SUBCUT SCH (09:42)
[2020-03-05] MEDS: SODIUM CHLORIDE 0.9% 1,000 ML IV SCH ×2 (09:50→21:26)
[2020-03-05] MEDS: LORazepam 2 MG/1 ML VIAL IV PRN (21:23)
[2020-03-05 22:04] LABS: Hematocrit 55.2 VOL% (42.0-52.0); Hemoglobin 19.3 GM/DL (14.0-18.0)
[2020-03-06] MEDS: ALBUTEROL/IPRATROPIUM 3 ML NEB RESP TX SCH ×4 (01:51→20:05)
[2020-03-06 06:30] LABS: Basophils # 0.1 10*3/uL (0.0-0.2); Basophils % 0.7 % (0.0-0.8); Eosinophils % 0.1 % (0.00-10.9); Hematocrit 53.5 VOL% (42.0-52.0); Hemoglobin 18.8 GM/DL (14.0-18.0); Immature Granulocytes % 0.4 %; Immature Granulocytes Absolute 0.03 #; Lymphocytes # 1.1 10*3/uL (1.4-4.0); Lymphocytes % 12.9 % (21.2-54.2); Mean Corpuscular HGB Conc 35.1 GM/DL (32-36); Mean Corpuscular Volume 93.7 FL (87-102); Mean Platelet Volume 11.4 FL (9.6-12.0); Neutrophils % 78.9 % (38.7-73.9); Platelet Count 98 T/CUMM (130-400); Red Blood Count 5.71 MC/CUMM (3.8-5.5); Red Cell Distribution Width 14.2 % (9.3-17.3); White Blood Count 8.5 T/CUMM (4-12)
[2020-03-06 07:09] LABS: Band Neutrophils 16 % (0-10); Lymphocytes 13 % (20-55); Platelet Estimate Decreased; Segmented Neutrophils 66 % (50-85); Total Cells Counted 100
[2020-03-06 08:04] LABS: Albumin 2.9 G/DL (3.4-5.0); Bilirubin,Total 1.2 MG/DL (0.2-1.0); Calcium 7.6 MG/DL (8.5-10.1); Osmolality,Calculated 295.5 MOS/KG (273-304); Total Protein 6.9 G/DL (6.4-8.3)
[2020-03-06] MEDS: PIPERACILLIN/TAZOBACTAM 3,375 MG in SODIUM CHLORIDE 0.9% 100 ML IV SCH ×2 (08:04→16:55)
[2020-03-06] MEDS: MULTIVITAMIN (CENTRUM) TABLET PO SCH (09:00)
[2020-03-06] MEDS: FOLIC ACID 1 MG TABLET PO SCH (09:00)
[2020-03-06] MEDS: NICOTINE 21 MG/24 HR PATCH TRANSDERM SCH (09:00)
[2020-03-06] MEDS: PANTOPRAZOLE 40 MG TABLET PO SCH (09:00)
[2020-03-06] MEDS: THIAMINE 100 MG TABLET PO SCH (09:00)
[2020-03-06] MEDS: SODIUM CHLORIDE 0.9% 1,000 ML IV SCH ×2 (12:46→16:48)
[2020-03-06] MEDS ORDERED: DEXAMETHASONE 4 MG/1 ML VIAL ONE ×2 (15:02→15:38)
[2020-03-06] MEDS ORDERED: LIDOCAINE 2% 5 ML VIAL ONE (15:02)
[2020-03-06] MEDS ORDERED: SUCCINYLCHOLINE 200 MG/10 ML VIAL ONE (15:02)
[2020-03-06] MEDS ORDERED: SEVOFLURANE 1 UNIT/15 MINUTE INH ONE ×4 (15:02→15:38)
[2020-03-06] MEDS ORDERED: ROCURONIUM 50 MG/5 ML VIAL IV ONE (15:02)
[2020-03-06] MEDS ORDERED: ONDANSETRON 4 MG/2 ML VIAL ONE ×2 (15:02→15:37)
[2020-03-06] MEDS ORDERED: ETOMIDATE 40 MG/20 ML VIAL IV ONE (15:02)
[2020-03-06] MEDS ORDERED: fentaNYL 250 MCG/5 ML VIAL ONE (15:03)
[2020-03-06] MEDS ORDERED: ACETAMINOPHEN 1,000 MG/100 ML VIAL IV ONE (15:37)
[2020-03-06] MEDS ORDERED: propofoL 200 MG/20 ML VIAL IV ONE (15:38)
[2020-03-06] MEDS ORDERED: PHENYLEPHRINE 1 MG/10 ML SYRINGE IV ONE (15:43)
[2020-03-06] MEDS ORDERED: SODIUM CHLORIDE 0.9% 100 ML IV ONE (15:56)
[2020-03-06] MEDS ORDERED: PHENYLEPHRINE 10 MG/1 ML VIAL IV ONE (15:56)
[2020-03-06] MEDS ORDERED: SUGAMMADEX 200 MG/2 ML VIAL IV ONE (15:58)
[2020-03-06] MEDS ORDERED: SODIUM CHLORIDE 0.9% 1,000 ML IV ONE (15:59)
[2020-03-06] MEDS ORDERED: HYDROmorphone 2 MG/1 ML VIAL IV PRN (16:03)
[2020-03-06 16:07] LABS: Bilirubin,Urine Negative (Negative); Blood, Urine Large mg/dL (Negative); Glucose,Urine (UA) Negative (Negative); Ketones,Urine Negative (Negative); Mucus,Urine Occasional /LPF (Occasional); Nitrite,Urine Negative (Negative); Protein,Urine 30 MG/DL; RBC,Urine 3 /HPF (0-4); Squamous Epithelial Cell,Urine Occasional /HPF (0-10); Urine Appearance Slightly Hazy (Clear); Urine Color Amber (Yellow); Urine Specific Gravity 1.023 (1.001-1.035); WBC,Urine <1 /HPF (0-6)
[2020-03-07] MEDS: ALBUTEROL/IPRATROPIUM 3 ML NEB RESP TX SCH ×4 (01:19→19:02)
[2020-03-07] MEDS: SODIUM CHLORIDE 0.9% 1,000 ML IV SCH ×3 (02:05→18:00)
[2020-03-07 03:10] LABS: Basophils # 0.1 10*3/uL (0.0-0.2); Basophils % 1.3 % (0.0-0.8); Hematocrit 51.6 VOL% (42.0-52.0); Hemoglobin 18.1 GM/DL (14.0-18.0); Immature Granulocytes Absolute 0.14 #; Lymphocytes # 0.7 10*3/uL (1.4-4.0); Lymphocytes % 10.3 % (21.2-54.2); Mean Corpuscular HGB Conc 35.1 GM/DL (32-36); Mean Corpuscular Volume 95.7 FL (87-102); Mean Platelet Volume 12.2 FL (9.6-12.0); Monocytes % 8.3 % (1.7-12.7); Neutrophils % 78.1 % (38.7-73.9); Platelet Count 80 T/CUMM (130-400); Red Blood Count 5.39 MC/CUMM (3.8-5.5); Red Cell Distribution Width 14.3 % (9.3-17.3)
[2020-03-07 03:48] LABS: Platelet Estimate Decreased
[2020-03-07 04:02] LABS: Albumin 2.4 G/DL (3.4-5.0); Bilirubin,Total 1.3 MG/DL (0.2-1.0); Calcium 7.3 MG/DL (8.5-10.1); Total Protein 6.2 G/DL (6.4-8.3)
[2020-03-07] MEDS: PIPERACILLIN/TAZOBACTAM 3,375 MG in SODIUM CHLORIDE 0.9% 100 ML IV SCH ×3 (05:29→20:29)
[2020-03-07] MEDS: NICOTINE 21 MG/24 HR PATCH TRANSDERM SCH (09:46)
[2020-03-07] MEDS: THIAMINE 100 MG TABLET PO SCH (09:47)
[2020-03-07] MEDS: FOLIC ACID 1 MG TABLET PO SCH (09:47)
[2020-03-07] MEDS: PANTOPRAZOLE 40 MG TABLET PO SCH (09:47)
[2020-03-07] MEDS: MULTIVITAMIN (CENTRUM) TABLET PO SCH (09:47)
[2020-03-07] MEDS: MENTHOL/ZINC OXIDE OINT 71 GM JAR TOP SCH (14:49)
[2020-03-08] MEDS: ALBUTEROL/IPRATROPIUM 3 ML NEB RESP TX SCH ×4 (00:20→19:30)
[2020-03-08] MEDS: MENTHOL/ZINC OXIDE OINT 71 GM JAR TOP SCH ×3 (00:42→20:11)
[2020-03-08] MEDS: SODIUM CHLORIDE 0.9% 1,000 ML IV SCH (03:26)
[2020-03-08] MEDS: PIPERACILLIN/TAZOBACTAM 3,375 MG in SODIUM CHLORIDE 0.9% 100 ML IV SCH ×3 (04:44→20:10)
[2020-03-08 05:22] LABS: Basophils % 0.8 % (0.0-0.8); Hematocrit 47.2 VOL% (42.0-52.0); Hemoglobin 16.2 GM/DL (14.0-18.0); Immature Granulocytes % 1.5 %; Immature Granulocytes Absolute 0.08 #; Lymphocytes % 19.2 % (21.2-54.2); Mean Corpuscular HGB Conc 34.3 GM/DL (32-36); Mean Corpuscular Volume 97.1 FL (87-102); Monocytes % 15.6 % (1.7-12.7); Neutrophils % 62.9 % (38.7-73.9); Red Blood Count 4.86 MC/CUMM (3.8-5.5); Red Cell Distribution Width 14.2 % (9.3-17.3); White Blood Count 5.3 T/CUMM (4-12)
[2020-03-08 05:24] LABS: Platelet Count 66 T/CUMM (130-400)
[2020-03-08 05:50] LABS: Band Neutrophils 3 % (0-10); Lymphocytes 25 % (20-55); Platelet Estimate Decreased; Segmented Neutrophils 62 % (50-85); Total Cells Counted 100
[2020-03-08 06:04] LABS: Albumin 2.1 G/DL (3.4-5.0); Osmolality,Calculated 304.3 MOS/KG (273-304); Total Protein 6.3 G/DL (6.4-8.3)
[2020-03-08] MEDS: PANTOPRAZOLE 40 MG TABLET PO SCH (08:54)
[2020-03-08] MEDS: THIAMINE 100 MG TABLET PO SCH (08:54)
[2020-03-08] MEDS: NICOTINE 21 MG/24 HR PATCH TRANSDERM SCH (08:54)
[2020-03-08] MEDS: FOLIC ACID 1 MG TABLET PO SCH (08:54)
[2020-03-08] MEDS: MULTIVITAMIN (CENTRUM) TABLET PO SCH (08:54)
[2020-03-09] MEDS: ALBUTEROL/IPRATROPIUM 3 ML NEB RESP TX SCH ×4 (00:02→19:16)
[2020-03-09] MEDS: SODIUM CHLORIDE 0.9% 1,000 ML IV SCH ×2 (00:24→00:25)
[2020-03-09] MEDS: PIPERACILLIN/TAZOBACTAM 3,375 MG in SODIUM CHLORIDE 0.9% 100 ML IV SCH ×3 (04:44→20:43)
[2020-03-09 06:12] LABS: Basophils % 0.2 % (0.0-0.8); Eosinophils # 0.1 10*3/uL (0.0-0.87); Hematocrit 51.7 VOL% (42.0-52.0); Hemoglobin 17.2 GM/DL (14.0-18.0); Immature Granulocytes % 1.8 %; Immature Granulocytes Absolute 0.11 #; Lymphocytes % 16.8 % (21.2-54.2); Mean Corpuscular HGB Conc 33.3 GM/DL (32-36); Mean Corpuscular Volume 98.5 FL (87-102); Mean Platelet Volume 13.1 FL (9.6-12.0); Monocytes % 15.6 % (1.7-12.7); Neutrophils % 63.6 % (38.7-73.9); Red Blood Count 5.25 MC/CUMM (3.8-5.5); Red Cell Distribution Width 14.3 % (9.3-17.3); White Blood Count 6.1 T/CUMM (4-12)
[2020-03-09 06:20] LABS: Platelet Count 76 T/CUMM (130-400)
[2020-03-09 06:47] LABS: Band Neutrophils 3 % (0-10); Lymphocytes 26 % (20-55); Segmented Neutrophils 58 % (50-85); Total Cells Counted 100
[2020-03-09 06:48] LABS: Albumin 2.2 G/DL (3.4-5.0); Bilirubin,Total 1.7 MG/DL (0.2-1.0); Calcium 8.3 MG/DL (8.5-10.1); Osmolality,Calculated 312.6 MOS/KG (273-304); Platelet Estimate Decreased; Total Protein 6.6 G/DL (6.4-8.3)
[2020-03-09] MEDS: MULTIVITAMIN (CENTRUM) TABLET PO SCH (10:21)
[2020-03-09] MEDS: THIAMINE 100 MG TABLET PO SCH (10:22)
[2020-03-09] MEDS: PANTOPRAZOLE 40 MG TABLET PO SCH (10:22)
[2020-03-09] MEDS: FOLIC ACID 1 MG TABLET PO SCH (10:22)
[2020-03-09] MEDS: MENTHOL/ZINC OXIDE OINT 71 GM JAR TOP SCH ×2 (10:22→20:43)
[2020-03-09] MEDS ORDERED: DEXTROSE 5% 1,000 ML IV SCH (12:00)
[2020-03-09] MEDS: NICOTINE 21 MG/24 HR PATCH TRANSDERM SCH (12:03)
[2020-03-10] MEDS: ALBUTEROL/IPRATROPIUM 3 ML NEB RESP TX SCH ×3 (01:31→07:30)
[2020-03-10] MEDS: PIPERACILLIN/TAZOBACTAM 3,375 MG in SODIUM CHLORIDE 0.9% 100 ML IV SCH (05:43)
[2020-03-10 05:44] VITALS: BP 148/105
[2020-03-10 05:47] LABS: Albumin 2.3 G/DL (3.4-5.0); Bilirubin,Total 1.9 MG/DL (0.2-1.0); Calcium 8.2 MG/DL (8.5-10.1); Osmolality,Calculated 303.7 MOS/KG (273-304); Total Protein 7.1 G/DL (6.4-8.3)
[2020-03-10] MEDS ORDERED: PANTOPRAZOLE 40 MG VIAL IV SCH ×2 (08:00)
[2020-03-10 08:21] LABS: Basophils % 0.2 % (0.0-0.8); Eosinophils % 0.2 % (0.00-10.9); Hematocrit 58.4 VOL% (42.0-52.0); Hemoglobin 19.1 GM/DL (14.0-18.0); Immature Granulocytes % 5.3 %; Immature Granulocytes Absolute 0.64 #; Lymphocytes % 16.3 % (21.2-54.2); Mean Corpuscular HGB Conc 32.7 GM/DL (32-36); Mean Corpuscular Volume 101.6 FL (87-102); Mean Platelet Volume 12.9 FL (9.6-12.0); Monocytes % 1.2 % (1.7-12.7); NRBC # 0.08 10*3/uL; Neutrophils % 76.8 % (38.7-73.9); Platelet Count 120 T/CUMM (130-400); Red Blood Count 5.75 MC/CUMM (3.8-5.5); Red Cell Distribution Width 14.4 % (9.3-17.3); White Blood Count 12.1 T/CUMM (4-12)
[2020-03-10] MEDS ORDERED: NOREPINEPHRINE 8 MG in SODIUM CHLORIDE 0.9% 242 ML IV PRN (08:34)
[2020-03-10] MEDS ORDERED: NOREPINEPHRINE 4 MG/4 ML VIAL IV ONE (08:37)
[2020-03-10 08:39] LABS: Band Neutrophils 7 % (0-10); Lymphocytes 13 % (20-55); Segmented Neutrophils 78 % (50-85); Total Cells Counted 100
[2020-03-10] MEDS ORDERED: ATROPINE 1 MG/10 ML SYRINGE IV ONE (08:40)
[2020-03-10 08:41] LABS: Albumin 1.8 G/DL (3.4-5.0); Bilirubin,Total 1.2 MG/DL (0.2-1.0); Calcium 7.9 MG/DL (8.5-10.1); Osmolality,Calculated 310.3 MOS/KG (273-304); Total Protein 6.3 G/DL (6.4-8.3)
[2020-03-10] MEDS ORDERED: EPINEPHrine 1 MG/10 ML SYRINGE ONE (08:46)
[2020-03-10] MEDS ORDERED: ATROPINE 1 MG/10 ML SYRINGE ONE (08:46)
[2020-03-10] MEDS ORDERED: EPINEPHrine 1 MG/10 ML SYRINGE IV ONE (08:50)
[2020-03-10] MEDS ORDERED: SODIUM BICARBONATE 50 MEQ/50 ML VIAL IV ONE ×4 (08:50→10:30)
[2020-03-10 09:01] LABS: INR 1.3; PT Patient Result 13.4 SECS (9.8-11.9); Partial Thromboplastin Time 26.2 SECS (23.9-33.8)
[2020-03-10] MEDS ORDERED: EPINEPHrine 1 MG/ML VIAL ONE (09:01)
[2020-03-10] MEDS ORDERED: HEPARIN/NACL 0.9% 2 UNITS/ML 500 ML IV ONE (09:03)
[2020-03-10] MEDS ORDERED: PHENYLEPHRINE DRIP 40 MG/250 ML PREMIX IV ONE (09:36)
[2020-03-10 09:40] LABS: ABG Base Excess -17.7 MMOL/L (-2.5-2.5); ABG HCO3 10.6 MMOL/L (20-26); ABG Oxygen Saturation 11.3 % (95-100); ABG TCO2 23.5 MMOL/L (23-27)
[2020-03-10 09:45] LABS: ABG PH 6.891 (7.35-7.45); ABG PO2 20.7 MM HG (80-95)
== END 2020-03-10 10:57 | disposition expired | DRG 264 ==
LOC: EDUNIT# → EDBD → N.ED 18:04 → SUATTDRO 23:18 → N.EDINP 03-04 01:07 → SUATTDRO 03-04 01:07 → N.3E 03-04 15:58 → N.ICU 03-06 16:22 → N.3E 03-07 14:22 → N.ICU 03-10 07:35
PROVIDERS: ADMIT Internal Medicine; ATTEND Family Medicine